=== PATIENT | female | born 1955 | race Caucasian/White ===

== ENCOUNTER 2018-02-17 11:42 | Observation (INO) | payer OTHER, MEDICARE ==
[2018-02-17] MEDS ORDERED: ASPIRIN 81 MG PO STA ×2 (12:06→15:05)
[2018-02-17] MEDS ORDERED: ACETAMINOPHEN IV (For NPO) 1,000 MG/100 ML VIAL IV STA (12:06)
[2018-02-17] MEDS ORDERED: NITROGLYCERIN OINT 1 INCH/GM PACKET TOPICAL STA (12:06)
[2018-02-17] MEDS ORDERED: MORPHINE SULFATE/PF 10MG/10ML VL IV STA (12:06)
[2018-02-17] MEDS ORDERED: SODIUM CHLORIDE 0.9% 1,000 ML IV STA (12:06)
[2018-02-17] MEDS ORDERED: ONDANSETRON 4 MG/2 ML VIAL IVP STA (12:06)
[2018-02-17] MEDS ORDERED: ACETAMINOPHEN TAB 500 MG TAB PO STA (12:08)
--- NOTE | 2018-02-17 12:11 | ED ---
Chest Pain HPI - General Chief Complaint: Chest Pain Stated Complaint: chest pain Time Seen by Provider: 02/17/18 11:55 Source: patient, family Mode of arrival: wheelchair Limitations: no limitations - History of Present Illness Initial Comments: 62 years old female comes in with a chest pain ongoing for about 2 weeks off-and -on chest pain got worse over the last couple days it's worse with the exertion yesterday she was seen at [facility] after feeding for some time she left without seeing a physician she does have a quite complex past medical history has smoked for about a 40+ years and I am has a previous diagnosis of chest pain with deep exertion now she is having a chest pain even without moving in the bed area denies any headaches but has been feeling weak and now fell yesterday but denies any headache no neck stiffness has chest pain and chest pressure worse with deep breaths and exertion [place] pain no frequency urgency dysuria no symptoms of TIA or CVA - Related Data Home Medications Medication Instructions Recorded Confirmed Amitriptyline HCl [Elavil] 50 mg PO HS 02/17/18 02/17/18 Atorvastatin [Lipitor] 20 mg PO HS 02/17/18 02/17/18 HYDROcodone/IBUPROFEN 7.5-200 1 tab PO BID PRN 02/17/18 02/17/18 [Vicoprofen 7.5-200 mg] Isosorbide Mononitrate ER [Imdur] 30 mg PO DAILY 02/17/18 02/17/18 Metoprolol Succinate (ER) [Toprol 50 mg PO DAILY 02/17/18 02/17/18 Xl] Tiotropium 18 Mcg/Puff [Spiriva] 1 cap INHALATION RT-DAILY 02/17/18 02/17/18 busPIRone HCL [busPIRone HCL] 10 - 20 mg PO BID 02/17/18 02/17/18 oxyCODONE-APAP 7.5-325MG [Percocet 1 tab PO TID PRN 02/17/18 02/17/18 7.5-325 mg] Allergies Allergy/AdvReac Type Severity Reaction Status Date / Time Iodinated Contrast- Oral and Allergy Anaphylaxis Verified 02/17/18 12:17 IV Dye Review of Systems ROS Statement: Those systems with pertinent positive or pertinent negative responses have been documented in the HPI. ROS Other: All systems not noted in ROS Statement are negative. EKG Findings - EKG Comments: EKG Findings:: EKG is normal sinus rhythm ventricular rate is 71 GA interval is 124 QRS duration is 86 QT/QTc is 422/458 review of this EKG does not reveal any ST elevation or ST depression Past Medical History Past Medical History: Chest Pain / Angina Additional Past Medical History / Comment(s): degenerative disc disease, cervical radiculopathy History of Any Multi-Drug Resistant Organisms: None Reported Past Psychological History: Anxiety Smoking Status: Current every day smoker Past Alcohol Use History: None Reported Past Drug Use History: None Reported General Exam Limitations: no limitations Course Vital Signs 02/17/18 02/17/18 02/17/18 11:44 13:59 14:24 Temperature 98.5 F Pulse Rate 70 77 73 Respiratory 20 16 16 Rate Blood Pressure 124/82 109/74 153/83 O2 Sat by Pulse 99 98 98 Oximetry Patient was reassessed at term [address] has some findings the ventricles, d- dimer is negative troponin is negative, his metabolic workup metabolic panel is negative and she would need admission considering she is very unsteady on her gait tenderness noticed that she almost fell in the bathroom and she has fallen twice the need to rule out brainstem infarct and a page 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 Craig'lilia with neurology consultand cardiology consult 02/17/18 15:06 Disposition Clinical Impression: Dizziness, Chest pain, CVA tenderness Disposition: ADMITTED IP TO THIS HOSP Condition: Good Referrals: Javier Wright DO [Primary Care Provider] - 1-2 days
[2018-02-17] MEDS ORDERED: ACETAMINOPHEN IV (For NPO) 1,000 MG in EMPTY BAG 1 BAG IVPB STA (12:13)
[2018-02-17 12:31] LABS: Basophils % (A) 0 %; Eosinophils % (A) 1 %; HCT 42.5 % (34.0-46.0); HGB 15.3 gm/dL (11.4-16.0); Lymphocytes % (A) 30 %; MCH 31.3 pg (25.0-35.0); MCHC 35.9 g/dL (31.0-37.0); MCV 87.1 fL (80.0-100.0); Mean Platelet Volume 7.8; Monocytes # (A) 0.4 k/uL (0-1.0); Monocytes % (A) 6 %; Neutrophils # (A) 4.2 k/uL (1.3-7.7); Neutrophils % (A) 62 %; Platelet Count 247 k/uL (150-450); RBC 4.89 m/uL (3.80-5.40); RDW 12.6 % (11.5-15.5); WBC 6.8 k/uL (3.8-10.6)
[2018-02-17 12:41] LABS: INR 1.1 (<1.2); Prothrombin Time 10.4 sec (9.0-12.0)
[2018-02-17 12:42] LABS: ALT 21 U/L (9-52); AST 16 U/L (14-36); Albumin 3.4 g/dL (3.5-5.0); Alkaline Phosphatase 64 U/L (38-126); Anion Gap 12 mmol/L; Blood Urea Nitrogen 14 mg/dL (7-17); Calcium 9.2 mg/dL (8.4-10.2); Carbon Dioxide 23 mmol/L (22-30); Chloride 109 mmol/L (98-107); Glucose 87 mg/dL (74-99); Magnesium 2.1 mg/dL (1.6-2.3); Potassium 3.9 mmol/L (3.5-5.1); Sodium 144 mmol/L (137-145); Total Bilirubin 0.4 mg/dL (0.2-1.3); Total Protein 5.9 g/dL (6.3-8.2)
[2018-02-17 12:45] LABS: D-Dimer 0.27 mg/L FEU (<0.60)
--- NOTE | 2018-02-17 12:51 | CT ---
EXAMINATION TYPE: CT brain wo con DATE OF EXAM: 02/17/2018 COMPARISON: NONE HISTORY: Left arm numbness and chest pain x months. CT DLP: 1115 mGycm Automated exposure control for dose reduction was used. FINDINGS: Ventricular system is midline without evidence of displacement. Mild generalized degenerative change. Faint periventricular low attenuation be associated with remote microvascular ischemia. No acute hemorrhage or mass effect. Calvarium intact. IMPRESSION: NO ACUTE HEMORRHAGE OR MASS EFFECT. NONSPECIFIC PERIVENTRICULAR LOW ATTENUATION IS SEEN. IF THERE IS CONCERN FOR ACUTE ISCHEMIA CORRELATE WITH MRI CLINICALLY WARRANTED.
[2018-02-17 12:54] LABS: Partial Thromboplastin Time 21.8 sec (22.0-30.0)
--- NOTE | 2018-02-17 12:55 | XR ---
EXAMINATION TYPE: XR chest 2V DATE OF EXAM: 02/17/2018 COMPARISON: NONE TECHNIQUE: PA and lateral views submitted. HISTORY: Chest pain FINDINGS: The lungs are clear and there is no pneumothorax, pleural effusion, or focal pneumonia. Hyperinflat ion noted. Hypertrophic and degenerative change of the spine. IMPRESSION: 1. No acute process. Correlate for COPD.
[2018-02-17 13:04] LABS: Creatine Kinase 35 U/L (30-135)
[2018-02-17 13:18] LABS: Creatine Kinase MB 0.5 ng/mL (0.0-2.4); Troponin I <0.012 ng/mL (0.000-0.034)
[2018-02-17] MEDS ORDERED: ALPRAZolam 1 MG TAB PO STA (14:04)
[2018-02-17] MEDS ORDERED: ACETAMINOPHEN TAB 325 MG TAB PO PRN (15:23)
[2018-02-17] MEDS ORDERED: NALOXONE 0.4 MG/ML 1 ML VIAL IV PRN ×2 (15:23→16:17)
[2018-02-17] MEDS ORDERED: ALPRAZolam 1 MG TAB PO PRN (15:23)
[2018-02-17] MEDS ORDERED: ONDANSETRON 4 MG/2 ML VIAL IVP PRN (15:23)
[2018-02-17] MEDS ORDERED: oxyCODONE-APAP 7.5-325MG 1 EACH TAB PO PRN (15:29)
[2018-02-17] MEDS ORDERED: IBUPROFEN PO PRN (15:29)
[2018-02-17] MEDS ORDERED: HYDROCODONE PO PRN (15:29)
[2018-02-17] MEDS ORDERED: CALCIUM CARBONATE 500 MG CHEWABLE PO PRN (16:17)
[2018-02-17] MEDS ORDERED: MELATONIN 3 MG TABLET PO PRN (16:17)
[2018-02-17] MEDS ORDERED: LORazepam 0.5 MG TAB PO PRN (16:17)
[2018-02-17] MEDS ORDERED: LACTULOSE 20 GM/30 ML CUP PO PRN (16:17)
[2018-02-17] MEDS ORDERED: MAGNESIUM HYDROXIDE 2,400 MG/10 ML CUP PO PRN (16:17)
--- NOTE | 2018-02-17 16:55 | HP ---
HISTORY AND PHYSICAL DATE OF SERVICE: February 17, 2018. PRESENT COMPLAINT: Chest pain. HISTORY OF PRESENTING COMPLAINT: This is a 62-year-old patient of Dr. Wright. Chronic stable medical conditions include COPD, hyperlipidemia, osteoarthritis. The patient is here with her . The patient for about 3 weeks has been having episodes of chest pressure even coming on at rest, sometimes going to the jaw, left arm with episodes of perspiration. Patient has been taking up to 3-4 nitros at home sometimes with some help. The symptoms were becoming uncontrolled. Hence, she got admitted for unstable angina. The patient is extremely anxious. The patient is a smoker. The patient also feeling tired, run down, fatigued. REVIEW OF SYSTEMS: Constitutional: Tired. HEENT none. Respiratory as above. Cardiovascular as above. Gastrointestinal: A bowel movement every 4 days. Genitourinary: None. Musculoskeletal: The patient has got chronic neck pain, lower back pain. DERMATOLOGICAL, HEMATOLOGIC, LYMPHATIC: none. Psychiatry very anxious, some depression. Neurological none. PAST MEDICAL HISTORY: COPD, migraines, chronic pain in the neck, hyperlipidemia, angina, COPD, hypertension, osteoarthritis. PAST SURGICAL HISTORY: Past surgical history not listed. SOCIAL HISTORY: The patient smokes 5-6 cigarettes a day average about half a pack a day, close to 40 years. No alcohol. The patient has been for 3 months. 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 FAMILY HISTORY: Family history the patient does not know. She is not in touch really with the family. HOME MEDICATIONS: 1. Spiriva 1 capsule daily. 2. Imdur ER 30 mg p.o. daily. 3. Buspirone 10-20 mg p.o. b.i.d. 4. Toprol-XL 50 mg p.o. daily. 5. Lipitor 20 mg q.h.s. 6. Elavil 50 mg q.h.s. 7. Percocet 7.5 one tab t.i.d. p.r.n. 8. Vicoprofen 7.5 one tab p.o. b.i.d. p.r.n. ALLERGIES: IV CONTRAST DYE. EXAMINATION: Temp 98.6, pulse 80, respiratory 18, blood pressure 149/87, pulse ox 96% on 2 L. General appearance: Thin build, sitting up, very anxious appearing. Eyes pupils equal. Conjunctivae normal. HEENT external appearance of nose and ears normal. Oral cavity normal. Neck JVD not raised. Mass not palpable. Respiratory effort increased. LUNGS: Diminished breath sounds. Some prolonged expiration. Cardiovascular 1st and 2nd sounds normal. No edema. ABDOMEN: Soft, nontender. Liver and spleen not palpable. Lymphatics: No lymph nodes palpable in the neck and axilla. Psychiatry: Alert and oriented times three. Very anxious appearing. Pulses dorsalis pedis is palpable. INVESTIGATIONS: White count 6.8, hemoglobin 15.3, potassium 3.9, BUN and creatinine is normal. First troponin is negative. EKG shows normal sinus rhythm with some poor R-wave progression anterior leads. Chest x-ray shows hyperinflation. ASSESSMENT: 1. Possible unstable angina in a patient whose risk factors include smoking. The patient does not know about his family history. 2. Chronic nicotine dependence patient is a cigarette smoker. 3. Emphysema in a current smoker. 4. Primary osteoarthritis of the lumbar cervical spine even as seen on the chest x- ray. 5. Hyperlipidemia. 6. Essential hypertension. 7. Uncontrolled anxiety. PLAN: Cardiology was consulted. Home medications are resumed. The patient will be put on aspirin. The patient will at least need a stress test. The patient is given nicotine patch. Will also consult Psychiatry because of significant anxious component. Care was discussed with the patient and the . Copy to Dr. Wright. JUAN / TAYO: [id number] /
--- NOTE | 2018-02-17 18:25 | P.CNNES ---
History of Present Illness Consult date: 02/17/18 Reason for Consult: Patient with unsteady gait and possible brainstem ischemia. History of Present Illness: This patient is a 62-year-old right-handed white female was brought into the emergency room today for evaluation of chest pain and left arm numbness. Patient had been having symptoms were over 2 weeks of on and off chest pain. She was seen in the ER today by Dr. Esquivel. Further history reveals that she has a long-standing history of smoking for over 40 years. She has been having recurrent chest pain and has been taking 4-5 nitroglycerin tablets for only temporary relief. Yesterday her symptoms worsened on exertion and she did initially go to [facility] but left without seeing a physician. She has been complaining of generalized weakness on and off over the last several days. Apparently today in the emergency room she was found to have evidence of unstable angina. Cardiology has been consulted. She has been having symptoms on not only retrosternal chest pain but also pain radiating into her jaw and left arm. She describes the left arm symptoms of possibly related to numbness off and on that she has had in the past due to history of cervical disc disease for which she underwent surgery in 2004. The patient also was seen in the emergency room to have evidence of unsteady gait. She became very unsteady while standing in the bathroom. She was sent for a computed tomography scan of the brain which revealed no acute hemorrhage or mass effect. Nonspecific periventricular low attenuation was seen. Radiologist suggested MRI of the brain to rule out ischemia. Patient denies any previous history of TIA or stroke. She states her unsteadiness has been related to excessive fatigue and tiredness that she has been recently experiencing. Due to the initial computed tomography scan results we have recommended the patient undergo MRI of the brain for further evaluation of possible brainstem ischemia. She does not have any episodes of recent diplopia or multiple falls at home. Her major symptom recently has been the ongoing chest pain and angina like presentation. Given herlong-standing history of smoking this would be a risk factor for coronary artery disease. Cardiology has been consulted. Patient also has symptoms of uncontrolled anxiety. Dr. Sanabria has ordered a psychiatry consultation for the patient as well. Patient states overall she is not feeling unsteady in her hands or any signs of dysmetria with fine motor skills in the hands. She denies any significant back pain to cause leg weakness. She is being treated for underlying hyperlipidemia and does take Lipitor on a daily basis. We reviewed the results of the computed tomography scan of the brain today with the patient. We will await the results of the MRI of the brain and give further recommendations. We would recommend the patient to consider using one baby aspirin daily for secondary stroke prevention. We will await further recommendations from cardiology and psychiatry who have been consulted in her current admission. Neurology is now been consulted for further evaluation and recommendations. Review of Systems Constitutional: Denies chills, Denies fever Eyes: denies blurred vision, denies pain Ears, nose, mouth and throat: Denies headache, Denies sore throat Cardiovascular: Denies chest pain, Denies shortness of breath Respiratory: Denies cough Gastrointestinal: Denies abdominal pain, Denies diarrhea, Denies nausea, Denies vomiting Genitourinary: Denies dysuria, Denies hematuria Musculoskeletal: Denies myalgias Integumentary: Denies pruritus, Denies rash Neurological: Reports balance difficulties, Reports gait dysfunction, Reports lack of coordination, Denies numbness, Denies weakness Psychiatric: Denies anxiety, Denies depression Endocrine: Denies fatigue, Denies weight change Past Medical History Past Medical History: Chest Pain / Angina, COPD, Hyperlipidemia, Hypertension Additional Past Medical History / Comment(s): degenerative disc disease, cervical radiculopathy, microvascualr heart disease,endometerial tumors. 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 hx lasik eye, cervical(neck) sx2 failed twice has hermes/mesh patch and 6 screws. 3 c-sections, rt carpal tunnel release done 3 times, lt ankle/leg sx, nerve blocks in past.breast implants-replaced 5 years ago Past Anesthesia/Blood Transfusion Reactions: No Reported Reaction Additional Past Anesthesia/Blood Transfusion Reaction / Comment(s): clausterphobia. had blood transfusions-no reaction Smoking Status: Current every day smoker - Past Family History Mother Additional Family Medical History / Comment(s): mom was killed in [place] when pt was 4 years old Father History Unknown: Yes Additional Family Medical History / Comment(s): uncle had microvascular heart disease Medications and Allergies Home Medications Medication Instructions Recorded Confirmed Type Amitriptyline HCl [Elavil] 50 mg PO HS 02/17/18 02/17/18 History Atorvastatin [Lipitor] 20 mg PO HS 02/17/18 02/17/18 History HYDROcodone/IBUPROFEN 7.5-200 1 tab PO BID PRN 02/17/18 02/17/18 History [Vicoprofen 7.5-200 mg] Isosorbide Mononitrate ER [Imdur] 30 mg PO DAILY 02/17/18 02/17/18 History Metoprolol Succinate (ER) [Toprol 50 mg PO DAILY 02/17/18 02/17/18 History Xl] Tiotropium 18 Mcg/Puff [Spiriva] 1 cap INHALATION RT-DAILY 02/17/18 02/17/18 History busPIRone HCL [busPIRone HCL] 10 - 20 mg PO BID 02/17/18 02/17/18 History oxyCODONE-APAP 7.5-325MG [Percocet 1 tab PO TID PRN 02/17/18 02/17/18 History 7.5-325 mg] Allergies Allergy/AdvReac Type Severity Reaction Status Date / Time Iodinated Contrast- Oral and Allergy Anaphylaxis Verified 02/17/18 12:17 IV Dye Physical Examination - Vital Signs Vital Signs: Vital Signs Temp Pulse Resp BP Pulse Ox 02/17/18 16:00 98.6 F 80 18 149/87 98 02/17/18 15:46 90 18 155/83 97 02/17/18 14:24 73 16 153/83 98 02/17/18 13:59 77 16 109/74 98 02/17/18 11:44 98.5 F 70 20 124/82 99 Intake and Output 02/17/18 02/17/18 02/17/18 06:59 14:59 22:59 Output Total 400 Balance -400 Output: Urine 400 Other: Weight 53.977 kg - Constitutional General appearance: average body habitus, cooperative - EENT EENT: PERRL, mucous membranes moist - Respiratory Respiratory: lungs clear, normal breath sounds - Cardiovascular Cardiovascular: regular rate, normal S1, normal S2 Extremities: no peripheral edema bilaterally - Gastrointestinal Gastrointestinal: normoactive bowel sounds - Integumentary Integumentary: normal - Neurologic Cranial nerve examination: PERRL, EOMI, VFF, V1/V2/V3 grossly intact, tongue midline, intact gag reflex, intact corneal reflex, normal palatal elevation Speech examination: intact Sensorimotor examination: intact Motor examination - right side: 4/5: biceps, triceps, wrist flexion, wrist extension, supervisor customer services, hip flexors, knee extensors, dorsiflexion, toe extension (EHL) , plantarflexion Motor examination - left side: 4/5: biceps, triceps, wrist flexion, wrist extension, supervisor customer services, hip flexors, knee extensors, dorsiflexion, toe extension (EHL) , plantarflexion Detailed sensory examination: intact Reflex and gait examination: intact Reflexes: 1+: ankle, bicep, knee, tricep - Musculoskeletal Musculoskeletal: no pain - Psychiatric Psychiatric: mood/affect appropriate, cooperative Results - Laboratory Findings CBC and BMP: 02/17/18 12:14 02/17/18 12:14 Abnormal Lab Findings: Abnormal Labs 02/17/18 02/17/18 12:14 12:14 APTT 21.8 L Chloride 109 H Total Protein 5.9 L Albumin 3.4 L Assessment and Plan (1) Transient brainstem ischemia Current Visit: Yes Status: Acute Code(s): G45.9 - TRANSIENT CEREBRAL ISCHEMIC ATTACK, UNSPECIFIED SNOMED Code(s): 919760669 (2) Gait abnormality Current Visit: Yes Status: Acute Code(s): R26.9 - UNSPECIFIED ABNORMALITIES OF GAIT AND MOBILITY SNOMED Code(s): 94733421 (3) Chest pain Current Visit: Yes Status: Acute Code(s): R07.9 - CHEST PAIN, UNSPECIFIED SNOMED Code(s): 38632494 (4) Dizziness Current Visit: Yes Status: Acute Code(s): R42 - DIZZINESS AND GIDDINESS SNOMED Code(s): 652444698 Plan: This patient is a 62-year-old female being evaluated for two-week history of ongoing chest pain and unstable angina. She has a long-standing history of smoking for over 40 years. She was admitted to hospital for unstable angina. She underwent a computed tomography scan of the brain results of which are noted above. Some nonspecific periventricular low attenuation was noted on the CAT scan. We have recommended the patient undergo MRI of the brain for further evaluation to rule out any possibility of brainstem ischemia. She has been having symptoms of unsteadiness and difficulty ambulating over the last few days according to the patient. She had a fall yesterday as well with no significant trauma. We will continue close neurological follow-up with the patient. Cardiology and psychiatry of also been consulted and we will await their further recommendations. We recommend the patient to be placed on one baby aspirin 81 mg daily for secondary stroke prevention. We will give further recommendations depending on her MRI results. Her overall prognosis at this time remains guarded. This case was discussed at length with the patient and her at bedside. All of their questions were answered. She is aware of our current findings and recommendations and is in full agreement with our workup. Time with Patient: Greater than 30
[2018-02-17] MEDS: MORPHINE ORAL SOLN 10 MG/5 ML CUP PO PRN (20:37)
[2018-02-17] MEDS: busPIRone HCl 10 MG TAB PO SCH (20:37)
[2018-02-17] MEDS: NICOTINE 7MG/24HR PATCH TRANSDERM SCH (20:38)
[2018-02-17] MEDS ORDERED: ATORVASTATIN 20 MG TAB PO SCH (21:00)
[2018-02-17] MEDS ORDERED: AMITRIPTYLINE HCL 50 MG TAB PO SCH (21:00)
[2018-02-18] MEDS: MORPHINE ORAL SOLN 10 MG/5 ML CUP PO PRN ×3 (04:44→14:45)
[2018-02-18] MEDS: IPRATROPIUM 0.5 MG/2.5 ML NEBU INHALATION SCH ×3 (06:59→16:06)
--- NOTE | 2018-02-18 07:46 | US ---
EXAMINATION TYPE: US carotid duplex BILAT DATE OF EXAM: 02/17/2018 COMPARISON: NONE CLINICAL HISTORY: Possible stroke. TIA and left arm numbness EXAM MEASUREMENTS: RIGHT: Peak Systolic Velocity (PSV) cm/sec ----- Right CCA: 49.4 ----- Right ICA: 50.5 ----- Right ECA: 48.3 ICA/CCA ratio: 1.0 RIGHT: End Diastole cm/sec ----- Right CCA: 17.5 ----- Right ICA: 30.7 ----- Right ECA: 13.1 LEFT: Peak Systolic Velocity (PSV) cm/sec ----- Left CCA: 61.4 ----- Left ICA: 84.5 ----- Left ECA: 106.4 ICA/CCA ratio: 1.4 LEFT: End Diastole cm/sec ----- Left CCA: 29.6 ----- Left ICA: 43.9 ----- Left ECA: 30.5 VERTEBRALS (direction of flow): Right Vertebral: Antegrade Left Vertebral: Antegrade Rhythm: Normal No significant stenosis seen Grayscale, color Doppler, spectral Doppler imaging performed of the carotid arteries. Atheromatous ch anges are present within the carotid bulbs. Waveform analysis does not show significant stenosis of t he proximal internal carotid arteries by Doppler criteria. IMPRESSION: No hemodynamic significant stenosis of the proximal internal carotid arteries bilaterall y by Doppler criteria, and indirect measurement of carotid stenosis, an indirect measurement of carot id stenosis
--- NOTE | 2018-02-18 08:29 | MR ---
EXAMINATION TYPE: MR brain wo con DATE OF EXAM: 02/18/2018 COMPARISON: NONE HISTORY: Patient with gait ataxia and unsteadiness T1-weighted sagittal, T2, FLAIR, and diffusion axial, and T2 coronal coronal views of the brain are s ubmitted. There is no evidence of acute ischemia. The ventricles, basal cisterns, and sulci overlying the conv exities are consistent with the patient's age. There is no mass effect. Craniocervical junction maintained. Partially empty sella turcica noted.. No cerebellopontine angle mass. There is signal within the home which may be artifactual. Remote isch emic changes also the differential diagnosis. Changes of chronic sinusitis. Low signal within the C4 vertebral body is nonspecific. Appears to correlate with an area of previous surgery in the topogram of the CT of the brain. IMPRESSION: 1. No acute intracranial process. Areas of abnormal signal within the home are nonspecific may been t he basis of remote ischemia or demyelination. Correlate clinically. 2. There is low signal C4 vertebral body which is only included on the sagittal image. Appears to cor relate with an area of previous surgery in the topogram of the CT of the brain.
[2018-02-18] MEDS ORDERED: ISOSORBIDE MONONITRATE ER 30 MG TAB.ER.24H PO SCH (09:00)
[2018-02-18] MEDS ORDERED: METOPROLOL SUCCINATE (ER) 50 MG TAB.ER.24H PO SCH (09:00)
[2018-02-18 09:25] VITALS: RESP 18
[2018-02-18] MEDS: busPIRone HCl 10 MG TAB PO SCH (09:34)
[2018-02-18] MEDS: NICOTINE 7MG/24HR PATCH TRANSDERM SCH (09:35)
[2018-02-18] MEDS ORDERED: DOBUTamine DRIP for NUC MED 250 MG in DEXTROSE/WATER 1 250ML.BAG IV ONE (10:01)
--- NOTE | 2018-02-18 11:05 | CONS ---
CONSULTATION CHIEF COMPLAINT: 1. Syncope. 2. Chest pain. 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 She states that some of these happened while she was sitting, but some while she was standing and she fell, but thankfully was never injured. There is no history of bladder or bowel incontinence. No history of focal neurological deficits. The patient also complains of chest discomfort intermittently, mild intensity precordial without definite radiation to neck, arm or back. This also has been going on for a while now. EKG does not reveal ischemic changes. Cardiac enzymes, we only have one troponin that is negative. Rest of her lab workup appears normal. PAST MEDICAL HISTORY: Past medical history is significant for hypertension, dyslipidemia, prior history of angina and cardiac catheterization 6 years ago without any stents and chronic back pain. MEDICATIONS: Medications include Vicodin, Percocet, Elavil, Lipitor, Toprol XL 50 q. daily, Imdur 30 q. daily, Spiriva. ALLERGIES: Allergies to IV DYE. FAMILY HISTORY: Family history is negative for premature coronary artery disease. SOCIAL HISTORY: Significant for smoking. There is no history of EtOH abuse or drug abuse. REVIEW OF SYSTEMS: HEENT is unremarkable. CARDIAC: As described above. RESPIRATORY: Negative. GI: Negative. GENITOURINARY: Negative. ALLERGY/IMMUNOLOGY: Negative. SKIN: Negative. MUSCULOSKELETAL: Significant for arthritis. PSYCHOSOCIAL: Negative. ENDOCRINE: Negative. HEMATOLOGICAL: Negative. DERM: Negative. CONSTITUTIONAL: Negative. ONCOLOGICAL: Negative. Rest of the system review is not relevant. PHYSICAL EXAM: On exam, comfortable at rest. Vital signs are stable. There is no jugular venous distention. Carotid upstroke is normal. There is no bruit. Chest exam reveals good air entry bilaterally. Heart exam reveals first and second heart sounds. No gallop. No murmur. No rub. Abdomen is soft, nontender. Examination of extremities did not reveal edema. Peripheral pulses are felt. EKG is normal. One set of troponin is negative. ASSESSMENT: 1. Precordial chest pain. 2. Syncope. PLAN: I will obtain another set of troponin. If this is negative, schedule her for a dobutamine echo. Syncope workup is currently in progress by the neurologist. We will review the echo. So far, she did not have any cardiac arrhythmia, did not have a myocardial infarction. If the stress test is negative, she can be discharged home and have continued followup in the outpatient setting. JUAN / IJN: [id number] /
[2018-02-18] MEDS ORDERED: ATROPINE SULFATE 0.1 MG/ML 10ML SYRINGE ONE (11:39)
--- NOTE | 2018-02-18 13:02 | ECHOF ---
Referral Reason:assess for pulmonry hypertension MEASUREMENTS -------- HEIGHT: 157.5 cm WEIGHT: 54.9 kg BP: 117/73 IVSd: 0.7 cm (0.6 - 1.1) LVIDd: 3.5 cm (3.9 - 5.3) LVPWd: 0.8 cm (0.6 - 1.1) IVSs: 1.2 cm LVIDs: 2.0 cm LVPWs: 1.5 cm Ao Diam: 2.8 cm (2.0 - 3.7) AV Cusp: 1.9 cm (1.5 - 2.6) LA Diam: 2.8 cm (2.7 - 3.8) MV EXCURSION: 13.015 mm (> 18.000) MV EF SLOPE: 60 mm/s (70 - 150) EPSS: 0.5 cm MV E Kyle: 0.70 m/s MV DecT: 200 ms MV A Kyle: 0.72 m/s MV E/A Ratio: 0.97 FINDINGS -------- Sinus rhythm. This was a technically good study. The left ventricular size is normal. Left ventricular wall thickness is normal. Overall left vent ricular systolic function is normal with, an EF between 55 - 60 %. The right ventricle is normal in size and function. The left atrium is normal in size. The right atrium is normal in size. The aortic valve is trileaflet, and appears structurally normal. No aortic stenosis or regurgitation. The mitral valve leaflets are mildly thickened. Trace tricuspid regurgitation present. The right ventricular systolic pressure, as measured by Dopp ler, is {RVSP}. Pulmonic valve appears structurally normal. The aortic root size is normal. Normal inferior vena cava with normal inspiratory collapse consistent with estimated right atrial pre ssure of 5 mmHg. The pericardium is normal. CONCLUSIONS -------- 1. Sinus rhythm. 2. This was a technically good study. 3. The left ventricular size is normal. 4. Left ventricular wall thickness is normal. 5. Overall left ventricular systolic function is normal with, an EF between 55 - 60 %. 6. The right ventricle is normal in size and function. 7. The left atrium is normal in size. 8. The right atrium is normal in size. 9. The aortic valve is trileaflet, and appears structurally normal. No aortic stenosis or regurgitati on. 10. The mitral valve leaflets are mildly thickened. 11. Trace tricuspid regurgitation present. 12. The right ventricular systolic pressure, as measured by Doppler, is {RVSP}. 13. Pulmonic valve appears structurally normal. 14. The aortic root size is normal. 15. Normal inferior vena cava with normal inspiratory collapse consistent with estimated right atrial pressure of 5 mmHg. 16. The pericardium is normal. MANAGER SALES SUPPORT: Supriya Landers RDCS
--- NOTE | 2018-02-18 13:59 | EST ---
EXERCISE STRESS AGE.: 62 SEX: F HT: 5'2" WT: 121 lb PROTOCOL: STAGE: 6 DURATION OF EXERCISE: 16:30 minutes HEART RATE REST: 65 BLOOD PRESSURE REST: 136/79 MAXIMUM HEART RATE ACHIEVED: 118 MAXIMUM BLOOD PRESSURE: 193/56 85% MPHR: 125 100% MPHR: 159 METS: INDICATIONS: Chest pain CLINICAL INFORMATION: Chest pain. RESULTS: This patient's baseline EKG revealed a sinus mechanism with low voltage pattern in precordial leads. With the dobutamine administration, the heart rate went up to 118 beats per minute. She also received 1 mg of some atropine. This heart rate is about 74% of predicted maximal making this an inconclusive stress test. Patient did not have any angina. EKG revealed some nonspecific ST-segment depression. This is however an inconclusive dobutamine stress test because of inadequate chronotropic response, probably secondary to beta-skyler administration. Baseline echo images revealed normal wall motion and wall thickening of all segments. At a maximal heart rate of 118 beats per minute with the dobutamine administration and atropine administration, there was no evidence of ischemia. There was good augmentation of left ventricular wall motion and wall thickening of all segments. However, this is an inconclusive stress test because of inadequate chronotropic response. FINAL IMPRESSION: Inconclusive dobutamine stress test by EKG criteria because of inadequate chronotropic response and inconclusive dobutamine echo because of inadequate chronotropic response. However, at the heart rate of 118 beats per minute, there was no evidence of ischemia. MMODL / IJN: [id number] /
--- NOTE | 2018-02-18 15:49 | P.CN ---
Psychiatric Consult - . Consult date: 02/18/18 Consult:: 02/18/18 15:42 Patient was seen for a psych consult regarding severe anxiety. Patient has a long history of anxiety and reports of having panic attacks which appear more like anxiety attacks than real panic disorder. She is treated for anxiety with several medications including BuSpar benzodiazepines etc. She thinks her anxiety is fairly well controlled. She is also on Elavil and takes narcotics for chronic pain. Her computed tomography scan of the brain shows mild degenerative changes with vascular events. It appears that she is going to be discharged today. This is a white ambulatory female with good hygiene. She is friendly and cooperative. She does not show psychomotor agitation or retardation. Her speech is spontaneous relevant and goal-directed. Her mood is minimally anxious and affect is appropriate. She denies hallucinations delusional thinking suicidal and homicidal ideas. She is well oriented with adequate memory concentration etc. Assessment: Anxiety disorder. Suggestions: Patient was advised to taper off narcotics and benzodiazepines and also Elavil because of the adverse effects of these medications especially since her computed tomography scan of the brain shows mild degenerative changes with vascular events. She was advised to have psychotherapy including behavior therapy to learn how to handle anxiety better than taking the addictive medications along with medications with anticholinergic side effects like Elavil.
--- NOTE | 2018-02-18 15:53 | P.PN ---
Progress Note - Text Progress Note Date: 02/18/18 Patient underwent a dobutamine echocardiographic study today, which was inconclusive, however with a heart rate of 118 there is no evidence of ischemia. Results were reviewed by Dr. Arvizu, patient may be able to be discharged home and follow-up in the office post discharge. DNP note has been reviewed, I agree with a documented findings and plan of care. Patient was seen and examined.
[2018-02-18 16:46] VITALS: BP 134/81; PULSE 77; TEMP 96.9
--- NOTE | 2018-02-19 04:19 | DS ---
DISCHARGE SUMMARY DATE OF ADMISSION: February 17, 2018. DATE OF DISCHARGE: February 18, 2018 FINAL DIAGNOSES: 1. Emphysema in a current smoker. 2. Chronic nicotine dependence in a current cigarette smoker. 3. Primary osteoarthritis of the lumbar and cervical spine. 4. Hyperlipidemia. 5. Essential hypertension. 6. Uncontrolled anxiety. 7. Left anterior chest wall pain could be musculoskeletal. HOSPITAL COURSE: This is a patient who is a smoker, a lot of anxiety, present anterior chest wall pain on and off. The patient troponins were negative. The patient did undergo dobutamine stress echocardiogram per Cardiology and patient is okay to be discharged. I had a lengthy discussion with the patient and her about smoking cessation. The patient also seen by Dr. Fam for some gait problem and the patient did have a MRI of the brain did not show any specific findings and Dr. Fam okayed the patient to be discharged too. EXAM: Lungs decreased breath sounds. Cardiovascular 1st and 2nd sounds normal. Psych AO x3. Anxious-appearing. CONSULTATION: Dr. Duque from Psychiatry, Dr. Paresh Arvizu from Cardiology, Dr. Odalis Fam from Neurology. DISCHARGE MEDICATIONS: 1. Lipitor 20 mg q.h.s. 2. Vicoprofen 7.5 one tab p.o. b.i.d. p.r.n. 3. Imdur ER 30 mg p.o. daily. 4. Toprol-XL 50 mg p.o. daily. 5. Spiriva 1 capsule p.o. daily. 6. Buspar 25 mg p.o. b.i.d. 7. Aspirin 81 mg p.o. daily. 8. Melatonin 3 mg q.h.s. p.r.n. 9. Nicotine patch. FOLLOWUP: Follow up with Dr. Wright on February 20, 2018. Follow up with Dr. Paresh Arvizu on 02/27/2018. Follow up with Dr. Fam p.r.n. Smoking cessation counseling was done with the patient and in detail. The patient says she will not smoke anymore and use a nicotine patch. More than 3 minutes was spent on this aspect of the counseling. Total time of discussion and discharge planning more than [address] Wright. MMCRISSYL / XIANGN: [id number] /
== END 2018-02-18 17:45 | disposition home or self-care (01) ==
LOC: EC 11:42 → 6SEL 15:23
PROVIDERS: ADMIT Hospitalist; ATTEND Hospitalist
DX: R07.89 Other chest pain (principal); J43.9 Emphysema, unspecified; F17.210 Nicotine dependence, cigarettes, uncomplicated; I10 Essential (primary) hypertension; E78.5 Hyperlipidemia, unspecified; F41.9 Anxiety disorder, unspecified; R55 Syncope and collapse; R20.0 Anesthesia of skin; R53.1 Weakness; R53.83 Other fatigue; M50.10 Cervical disc disorder with radiculopathy, unspecified cervical region; M47.816 Spondylosis without myelopathy or radiculopathy, lumbar region; M47.812 Spondylosis without myelopathy or radiculopathy, cervical region; M19.91 Primary osteoarthritis, unspecified site; G43.909 Migraine, unspecified, not intractable, without status migrainosus; Z79.899 Other long term (current) drug therapy; Z91.041 Radiographic dye allergy status; Z91.81 History of falling; Z86.19 Personal history of other infectious and parasitic diseases
CPT/HCPCS: 99285 ×2; 96374 ×2; 96375 ×2; 96361 ×7; 36415; 93005; 93017; 93306; 93350; 85379; 80053; 82550; 82553; 83735; 84484 ×2; 85025; 85610; 85730; 71046; 93880; 70450; 70551; G0378 ×2; S4990; J2405; J0461; J1250; J2270